=== PATIENT | female | born 1985 | race Caucasian/White ===

== ENCOUNTER 2016-06-01 20:52 | Observation (INO) | payer OTHER ==
[~2016-06-01] VITALS: Ht 165.1 cm; Wt 84.0 kg
[~2016-06-01 20:52] MED LIST: ACET325T51 PO; ALBU8.5H2 INHALATION; Dexamethasone 4 mg/mL Inj ONE; Glycopyrrolate 0.2 MG/ML 1mL Inj ONE; Ketamine 10 mg/mL 20 mL Inj ONE; Neostigmine 1 mg/mL 10 mL Inj ONE; OMEP20CA11 PO; Ondansetron 2 mg/mL 2 mL Inj ONE; Propofol 10,000 mCg/mL 20 mL Inj ONE; Rocuronium 10 mg/mL 5 mL Inj ONE; SUCR1ORA2 PO
[2016-06-01 20:56] VITALS: BP 137/95; PULSE 118; RESP 18; O2SAT 99
[2016-06-01] MEDS ORDERED: Ondansetron 2 mg/mL 2 mL Inj IVPUSH ONE (21:35)
[2016-06-01 21:44] LABS: BASOPHILS % (AUTO) 0.1 % (0-3); EOSINOPHILS % (AUTO) 0.3 % (0-5); MONOCYTES % (AUTO) 4.2 % (4-12); Mean Corpuscular Hemoglobin 28.3 pg (27.0-35.0); Mean Corpuscular Volume 84.4 fL (81-100); NEUTROPHILS % (AUTO) 82.4 % (40-74); Platelet Count 288 bil/L (150-400)
[2016-06-01 21:59] LABS: Magnesium 1.6 mg/dL (1.6-2.6)
[2016-06-01] MEDS: fentaNYL-PF 50 mCg/mL 2 mL Inj IVPUSH PRN ×3 (22:07→23:30)
[2016-06-01 22:21] LABS: APPEARANCE,URINE CLEAR (CLEAR,HAZY); COLOR,URINE YELLOW (YELLOW); OCCULT BLOOD,URINE TRACE (NEGATIVE); UROBILINOGEN,URINE NORMAL (NORMAL)
--- NOTE | 2016-06-01 22:25 | ED.REPORT ---
HPI-Abd Pain F Under 40 Date of Service Jun 01, 2016 ED Provider: Karthik Metzger MD The patient is a 31 year old female w/ a hx of cholelithiasis who presents to the ED due to RUQ abdominal and epigastric pain which radiates into the back for the past month increasing in severity today. C/o associated vomiting, nausea , diarrhea, loss of appetite, and slight fever. She is scheduled for cholecystitis surgery on the w/ Dr. Andrea Ramon and an upper and lower endoscopy on Saturday due to an extensive peptic ulcer family hx. The pt has been on protonics in recent weeks. She denies any fever, hematochezia or black and tarry stools. Nursing Notes Stated Complaint: GALLBLADDER ISSUES, PAIN, VOMITING, CAN'T EAT Chief Complaint: Female Abdominal Pain Nursing Notes Reviewed: Yes ([facility] not reconciled) Allergies: Coded Allergies: hydromorphone (Verified Allergy, Severe, Shortness of Breath, 06/01/16) oxycodone (Verified Adverse Reaction, Mild, ITCHING, 06/01/16) TOLERATES Scheduled Beclomethasone Dipropionate (Qvar) 8.7 Gm Aer.w.adap 1 PUFF INHALATION BID 40 MEQ Omeprazole (Omeprazole) 20 Mg Capsule.dr 20 MG PO ACHS Sucralfate Susp (Carafate Susp) 1 Gm/10 Ml Oral.susp 1 GM PO TID Scheduled PRN Acetaminophen (Acetaminophen) 325 Mg Tablet 500 MG PO Q4H PRN PRN For Pain Albuterol HFA (Proair HFA) 8.5 Gm Hfa.aer.ad 2 PUFFS INHALATION Q4H PRN PRN For Shortness of Breath General Time Seen by MD: 21:34 Chief Complaint Abdominal pain Hx Obtained From: Patient Arrived By: Walk-in Sudden in Onset?: Yes Onset Occurred: Yesterday Symptom Duration: Since onset Location: : RUQ Quality: Painful Radiation: : Back Severity: Current: Mild Recent Healthcare: Recent doctor visit, Recent testing Similar Sx Previous: Yes Past Medical History Past Medical History Notes: Ultrasound in recent days demonstrate cholelithiasis HIDA scan in recent days suggests cholecystitis Past Surgical History denies Smoking History Unknown if Ever Smoker Social History Other Social History: Good social support Ambulatory Status Independent Review of Systems Constitutional: Reports: Fever GI: Reports: Abdominal pain, Diarrhea, Vomiting, Denies: Bloody/tarry stool, Hematochezia Complete sys rev & neg: except as marked. Physical Exam Initial Vital Signs Vital Signs (First) Date Time Temp Pulse Resp B/P Pulse Ox O2 Delivery O2 Flow Rate FiO2 06/01/16 20:56 37.6 118 18 137/95 99 Room Air Initial VS: Reviewed Head / Eyes: Atraumatic, Normocephalic, PERRL ENT: Mucous membranes moist Extremities: Vascular intact, No swelling Skin: Warm, Dry General/Constitutional: Awake, Alert, Cooperative Respiratory / Chest: Atraumatic, Breath sounds NL, Breath sounds = bilat Heart Rate / Rhythm: Positive: Tachycardia Abdomen: No guarding, No rebound Tenderness/Guarding/Rebound: Positive: Tender RUQ... Back: Atraumatic, Inspection NL, Full range of motion Interpretation & Diagnostics Interpretation & Diagnostics: The imaging studies in recent days-abdominal ultrasound 04/03/16, HIDA scan 05/14/16 Lab Results Interpretation Result Diagram: 06/01/16212006/01/162120 Test 06/01/16 21:21 06/01/16 21:36 White Blood Count 9.5th/mm3 (3.8-10.1) Red Blood Count 5.51mil/mm3 (3.90-5.20) Hemoglobin 15.6g/dL (12.0-15.6) Hematocrit 46.5% (35.0-46.0) Mean Corpuscular Volume 84.4fL (81-100) Mean Corpuscular Hemoglobin 28.3pg (27.0-35.0) Mean Corpuscular Hemoglobin Concent 33.5% (32.0-37.0) Red Cell Distribution Width 12.9% (12.3-15.4) Platelet Count 288bil/L (150-400) Neutrophils (%) (Auto) 82.4% (40-74) Lymphocytes (%) (Auto) 12.9% (14-46) Monocytes (%) (Auto) 4.2% (4-12) Eosinophils (%) (Auto) 0.3% (0-5) Basophils (%) (Auto) 0.1% (0-3) Hold Purple Top Tube Received (Received) Hold Blue Top Tube Received (Received) Sodium Level 134mEq/L (134-144) Potassium Level 4.0mEq/L (3.5-5.2) Chloride Level 97mEq/L (97-108) Carbon Dioxide Level 21mmol/L (18-29) Blood Urea Nitrogen 9mg/dL (6-20) Creatinine 0.62mg/dL (0.57-1.00) Estimat Glomerular Filtration Rate 162mL/min (>59) Glucose Level 104mg/dL (60-99) Calcium Level 9.6mg/dL (8.5-10.1) Magnesium Level 1.6mg/dL (1.6-2.6) Total Bilirubin 0.9mg/dL (0.0-1.2) Aspartate Amino Transf (AST/SGOT) 17U/L (0-50) Alanine Aminotransferase (ALT/SGPT) 8U/L (0-32) Alkaline Phosphatase 80U/L (25-150) Total Protein 7.9g/dL (6.4-8.4) Albumin 4.7g/dL (3.4-5.0) Lipase 19U/L (13-60) Hold Red Top Tube Received (Received) Hold [place] Top Tube Received (Received) Hold [place] Top Tube Received (Received) Urine Color Yellow (YELLOW) Urine Appearance Clear (CLEAR,HAZY) Urine pH 6.0 (5.0-8.0) Urine Specific [place] 1.005 (1.003-1.035) Urine Protein Negativemg/dL (NEG,TRACE) Urine Glucose (UA) Negativemg/dL (NEGATIVE) Urine Ketones Negativemg/dL (NEGATIVE) Urine Occult Blood Trace (NEGATIVE) Urine Nitrite Negative (NEGATIVE) Urine Bilirubin Negative (NEGATIVE) Urine Urobilinogen Normalmg/dL (NORMAL) Urine Leukocyte Esterase Trace (NEGATIVE) Urine RBC 0-2/hpf (0-2) Urine WBC 6-10/hpf (0-5) Urine Epithelial Cells Few/hpf (NONE-MOD) Urine Crystals None seen (NONE SEEN) Urine Bacteria None/hpf (NONE-FEW) Urine Hyaline Casts None/lpf (NONE) Urine Granular Casts None seen (NONE SEEN) Urine Waxy Casts None seen (NONE SEEN) Urine Red Blood Cell Casts None seen (NONE SEEN) Urine White Blood Cell Casts None seen (NONE SEEN) Urine Mucus None seen (None Seen) Urine Trichomonas None seen (NONE SEEN) Urine Yeast None (NONE SEEN) Urine Culture Reflexed Indicated Lab Results Interpretation: CBC normal CMP normal Lipase normal negative UA 6-10 white cells Re-Eval/Medical Decision Med Decision/Clinical Course This is a 31-year-old female presents complaining of a one-day history of dramatic worsening of right upper quadrant pain reading the back. The patient' s been dealing with some epigastric discomfort over the past couple months, worse with eating-she has been seen by GI and a workup was pursued that included an ultrasound revealed gallstones, and a HIDA scan the end of April which is suggestive chronic cholecystitis, so she is seen a surgeon and is scheduled for laparoscopic cholecystectomy next week. However, there is also no simultaneous concerned about the possibility of peptic ulcer disease, apparently is extensive family history-and the request from GI was performed endoscopy prior to surgery, so that is scheduled Saturday. Over today there was a significant worsening of her symptoms, she reports she has had nearly daily discomfort to some degree, but that today her pain got dramatically worse, this is more the right upper quadrant, radiating to the back, again worse with food, and associated with nausea and was entirely uncontrolled. She [place] out on [address], initially got her attention so she came to the ED. She has not had a fever however. I am she is mildly uncomfortable, mild tenderness without sonia Chau's or guarding on ultrasound, but the location of her discomfort is now more in the right upper quadrant region of the back and much more suggestive clinically of gallbladder-related pathology, peptic ulcer disease which is in the differential as well. She was slightly tachycardic initially, but not febrile-a repeat vitals are normal. Blood work is also normal no leukocytosis, normal liver function tests and lipase. is negative. Patient received titrated fentanyl fluids with some improvement. Repeat ultrasound was obtained after discussion with GI-as clinically the patient most likely source is a cholecystectomy, but there is a preference from the GI service to if possible perform endoscopy prior to surgery, so they would like the ultrasound to see if there are findings to indicate a need for expedited surgery. The ultrasound revealed the cholecystitis, but no interval change or findings of sonia ultrasound signs of acute cholecystitis. Because discussed the case with surgery who will consult, given she does not have a fever, a white count, or other markers of infection-none pursuing antibiotics at this stage. GI will see in the morning as well, and the patient is being admitted to the hospitalist service. The patient is admitted in improved condition. Source of Hx: Old records Re-Evaluation/Progress : Time of Eval: 11:41 Re-Evaluation/Progress Note: Pt rechecked. Pain is slightly improved after medication. Informed pt of discussion with surgeons, need for admission, and plan of treatment. F/U and RTER warnings given. Pt understands and agrees with plan. Consultation #1: Referral / Consult Name: Prema Rodríguez MD Consulted With: Surgeon Call Returned at: 20:34 [place] Lifeguard: Agrees with eval, Agrees with plan Note: Case discussed. Consultation #2: Referral / Consult Name: Wade Gordon MD Call Returned at: 22:42 [place] Lifeguard: Agrees with eval, Agrees with plan Note: Case discussed with GI. Consultation #3: Referral / Consult Name: Jeremiah Garcia MD Consulted With: Hospitalist Call Returned at: 23:10 Beach Lifeguard: Agrees with eval, Agrees with plan Note: Case discussed. Counseled Regarding: Diagnosis, Lab results, Need for admission Discharge & Departure Primary Impression: Right upper quadrant pain Additional Impressions: Cholelithiasis Cholelithiasis location: gallbladder Cholecystitis presence: with cholecystitis Cholecystitis acuity: chronic Biliary obstruction: without biliary obstruction Qualified Code: K80.10 - Calculus of gallbladder with chronic cholecystitis without obstruction Nausea & vomiting Vomiting type: unspecified Vomiting Intractability: unspecified Qualified Code: R11.2 - Nausea with vomiting, unspecified Disposition: ADMITTED TO HOSPITAL Discharge Condition All VS Reviewed: Yes Condition: Stable Referrals: Hermelindo Troy MD (PCP) Alesha Attestation Portion of this note were transcribed by Lauren Edmonds. I, Dr. Metzger, personally performed the history, physical exam, and medical decision-making: I reviewed and confirmed the accuracy for the information in the transcribed note. Signed by: alesha Starks, 06/01/16 2300 copies to: Hermelindo Troy MD, Matthew F MD Jun 01, 2016 22:25 Lauren Edomnds Jun 01, 2016 22:32
[2016-06-01] MEDS ORDERED: Alum-Mag Hydrox-Simeth 30 mL Suspension PO PRN (23:25)
[2016-06-01] MEDS ORDERED: Polyethylene Glycol (PEG) 17 Gm Powder PO PRN (23:25)
[2016-06-01] MEDS ORDERED: BECL8.7A6 INHALATION (23:48)
[2016-06-02] VITALS (18 sets, daily range): BP systolic 86–133; BP diastolic 51–87; PULSE 57–94; RESP 12–24; O2SAT 94–100
[2016-06-02] MEDS: fentaNYL-PF 50 mCg/mL 2 mL Inj IVPUSH PRN ×8 (00:06→20:35)
[2016-06-02] MEDS: 0.9% Sodium Chloride 1,000 ML IV SCH ×4 (01:57→14:46)
[2016-06-02] MEDS: Ondansetron 2 mg/mL 2 mL Inj IVPUSH PRN ×3 (02:05→16:17)
--- NOTE | 2016-06-02 02:33 | PCM.HPMED ---
Subjective Date of Service Jun 01, 2016 Primary Provider: Admitting Physician: Jeremiah Garcia MD Primary Care Physician: Hermelindo Troy MD Attending Physician: Jeremiah Garcia MD Admit Status: From the Emergency Department Chief Complaint: Abdominal pain, nausea and vomiting. History of Present Illness: 31 y/o female with a history of cholelithiasis, reflux and asthma who presented to the ED complaining of worsening abdominal pain for the past month. She states that her pain has increased in severity in the last day or so and localizes to the RUQ with radiation to her back. Associated symptoms include nausea, vomiting, diarrhea, fever and decreased appetite. She describes the pain as severe and states that every time she tried to eat anything today the pain got worse and nothing seemed to make it go away. She states that she met with Dr. Ramon recently and was planning to have her gallbladder removed later this month. Per chart review, due to the patient's extensive family history of peptic ulcer disease and failure to improve on PPI therapy endoscopy was also planned for early next week. She states that her symptoms just kept getting worse so she decided to come in. She denies hematochezia or black, tarry stools , hematemesis, or urinary symptoms. She had an abdominal ultrasound in March that demonstrated cholelithiasis and a HIDA scan just a few weeks ago with findings suggestive for cholecystitis. In the ED, vitals 37.6, BP 137/95, pulse 118, RR 18, SpO2 99% on room air; Labs : lipase wnl, total bili 0.9, AST 17, ALT 8, alk phos 80, wbc 9.5, H/H 15.6/46.5 , plts 288, sodium 134, potassium 4.0, chloride 97, bicarb 21, BUN 9, creatinine 0.62, glucose 104. Urine test negative. Urinalysis with trace leukocyte esterase, negative nitrite, 6-10 wbc,and trace occult blood. Gastroenterology and General Surgery were consulted from the ED and both plan to see the patient in the morning. Review of Systems: A comprehensive review of systems was conducted with the patient and found to be negative except as above in the History of Present Illness. Allergies Coded Allergies: hydromorphone (Verified Allergy, Severe, Shortness of Breath, 06/01/16) oxycodone (Verified Adverse Reaction, Mild, ITCHING, 06/01/16) TOLERATES Home Medications Albuterol HFA 2 puffs inh q4h Omeprazole 20mg qid Sucralfate susp 1gm tid Acetaminophen 500mg q4h prn for pain PMH Cholelithiasis Asthma Carpal tunnel Reflux Surgical History Carpal tunnel release bilaterally Family History Father with colon cancer brother and sister with colon cancer Social History Hx Alcohol Use: No Hx Substance Use: No Smoking Status: Unknown if Ever Smoker Living Arrangement: with Family Exam Vital Signs Vital Sign - Last Date Time Temp Pulse Resp B/P Pulse Ox O2 Delivery O2 Flow Rate FiO2 06/01/16 20:56 37.6 118 18 137/95 99 Room Air Exam General: No acute distress, well-developed, well-nourished, appropriately interactive HEENT: Normocephalic, atraumatic Pupils equal, round, and reactive to light and accommodation, no scleral icterus, oral mucosa moist . Neck: Supple with full range of motion. No jugular venous distension. No bruits. No lymphadenopathy or thyromegaly. Cardiovascular: Regular rate and rhythm with no murmurs, rubs, or gallops appreciated Pulmonary: Clear to auscultation bilaterally with no crackles, wheezes, or rhonchi. Normal respiratory effort. Abdomen: Bowel tones present. Soft, nondistended, tenderness to palpation RUQ and epigastrium. No hepatosplenomegaly or masses appreciated. Extremities: No clubbing, cyanosis, edema, or lymphadenopathy appreciated. Skin: Normal temperature, turgor, and texture; no rash, ulcers, or subcutaneous nodules appreciated. Neurological: Cranial nerves grossly intact. Normal muscle strength, tone, and bulk. Psychiatric: Normal mood and affect. Alert and oriented to person, place, and time. Lab and Diagnostics Labs Laboratory Tests Test 06/01/16 21:21 06/01/16 21:36 White Blood Count 9.5th/mm3 (3.8-10.1) Red Blood Count 5.51mil/mm3 (3.90-5.20) Hemoglobin 15.6g/dL (12.0-15.6) Hematocrit 46.5% (35.0-46.0) Mean Corpuscular Volume 84.4fL (81-100) Mean Corpuscular Hemoglobin 28.3pg (27.0-35.0) Mean Corpuscular Hemoglobin Concent 33.5% (32.0-37.0) Red Cell Distribution Width 12.9% (12.3-15.4) Platelet Count 288bil/L (150-400) Neutrophils (%) (Auto) 82.4% (40-74) Lymphocytes (%) (Auto) 12.9% (14-46) Monocytes (%) (Auto) 4.2% (4-12) Eosinophils (%) (Auto) 0.3% (0-5) Basophils (%) (Auto) 0.1% (0-3) Hold Purple Top Tube Received (Received) Hold Blue Top Tube Received (Received) Sodium Level 134mEq/L (134-144) Potassium Level 4.0mEq/L (3.5-5.2) Chloride Level 97mEq/L (97-108) Carbon Dioxide Level 21mmol/L (18-29) Blood Urea Nitrogen 9mg/dL (6-20) Creatinine 0.62mg/dL (0.57-1.00) Estimat Glomerular Filtration Rate 162mL/min (>59) Glucose Level 104mg/dL (60-99) Calcium Level 9.6mg/dL (8.5-10.1) Magnesium Level 1.6mg/dL (1.6-2.6) Total Bilirubin 0.9mg/dL (0.0-1.2) Aspartate Amino Transf (AST/SGOT) 17U/L (0-50) Alanine Aminotransferase (ALT/SGPT) 8U/L (0-32) Alkaline Phosphatase 80U/L (25-150) Total Protein 7.9g/dL (6.4-8.4) Albumin 4.7g/dL (3.4-5.0) Lipase 19U/L (13-60) Hold Red Top Tube Received (Received) Hold [place] Top Tube Received (Received) Hold [place] Top Tube Received (Received) Urine Color Yellow (YELLOW) Urine Appearance Clear (CLEAR,HAZY) Urine pH 6.0 (5.0-8.0) Urine Specific [place] 1.005 (1.003-1.035) Urine Protein Negativemg/dL (NEG,TRACE) Urine Glucose (UA) Negativemg/dL (NEGATIVE) Urine Ketones Negativemg/dL (NEGATIVE) Urine Occult Blood Trace (NEGATIVE) Urine Nitrite Negative (NEGATIVE) Urine Bilirubin Negative (NEGATIVE) Urine Urobilinogen Normalmg/dL (NORMAL) Urine Leukocyte Esterase Trace (NEGATIVE) Urine RBC 0-2/hpf (0-2) Urine WBC 6-10/hpf (0-5) Urine Epithelial Cells Few/hpf (NONE-MOD) Urine Crystals None seen (NONE SEEN) Urine Bacteria None/hpf (NONE-FEW) Urine Hyaline Casts None/lpf (NONE) Urine Granular Casts None seen (NONE SEEN) Urine Waxy Casts None seen (NONE SEEN) Urine Red Blood Cell Casts None seen (NONE SEEN) Urine White Blood Cell Casts None seen (NONE SEEN) Urine Mucus None seen (None Seen) Urine Trichomonas None seen (NONE SEEN) Urine Yeast None (NONE SEEN) Urine Culture Reflexed Indicated Microbiology 06/01/16 Urine Culture, Received Pending Result Diagram: 06/01/16212006/01/162120 Additional Diagnostics: US Gallbladder (06/01/16) in the ED: IMPRESSION: Cholelithiasis with mild biliary ductal dilatation. Night read: Danilo Burt MD 06/02/2016 12:40 NM HIDA SCAN WITH CCK (05/14/16) IMPRESSION: Abnormal gallbladder ejection fraction this can be associated with chronic cholecystitis or sphincter of Oddi dysfunction. Dictated by: Liv Gregg MD, PhD on 05/14/2016 at 16:35 Approved by: Liv Gregg MD, PhD on 05/14/2016 at 16:36 US ABDOMEN (04/03/2016) IMPRESSION: 1. Increased hepatic echogenicity noted likely related to fatty infiltration of the liver but other sources of hepatocellular disease cannot be excluded. Recommend clinical correlation. 2. Cholelithiasis. Dictated by: Abhishek Troy RRA Interpreted: Nancy Abarca MD on 04/03/2016 at 11: 24 Transcribed by: LUI on 04/03/2016 at 11:29 Approved by: Nancy Abarca M.D. on 04/03/2016 at 15:18 Assessment & Plan 31 y/o F with a hx of cholelithiasis with biliary colic and outpatient evaluation by Dr. Ramon with laparoscopic cholecystectomy scheduled for 06/07/16 who presented to the ED complaining of severe RUQ abdominal pain, nausea and vomiting. Admitted for further evaluation and management of chronic cholecystitis. # Chronic cholecystitis, poa. Active -HIDA scan on 05/14/16 with findings consistent with chronic cholecystitis or sphincter of Oddi dysfunction. Abd US in Mar 2016 evidence of fatty infiltration of the liver, cholelithiasis. -US gallbladder in the ED- showed cholelithiasis w/mild biliary ductal dilatation. -total bili 0.9, AST 17, ALT 8, alk phos 80, lipase wnl -General surgery consulted from the ED, will plan to see in the morning. Per surgery, no antibiotics necessary at this time. -Gastroenterology also consulted, plan for endoscopy prior to surgery. Plan to see in the morning. -supportive care: IVFs, pain meds, anti-emetics prn. -keep NPO # Hx of gastroesophageal reflux, poa. Ongoing -strong family hx of peptic ulcer disease. Endoscopy per GI originally scheduled for Saturday. -refractory to PPI therapy -General surgery and GI consulted, as above -continue Protonix, antiemetics as needed -keep NPO # Hx of Asthma (chronic), poa. Stable -continue home medications PRN: Acetaminophen-fever/headache/mild/moderate pain Antiemetics, as needed Bowel regimen, as needed. Disposition: Patient admitted under inpatient status with expected length of stay < 2 midnights for severity of present symptoms and complexities of treatment plan. Pain Evaluation: Adequate Pain Control VTE Prophylaxis Indicated: Meets Criteria for Anticoag Therapy VTE Prophylaxis: Sub-Q Heparin (Unfractionated) Resuscitation Status: CPR: Attempt Resuscitation Attending Statement The patient was seen and examined together with Dr. Deluna on 06/01 and I agree with the history, exam and plan as outlined in the note above. Rosemarie Deluna DO Jun 01, 2016 23:27 Jeremiah Garcia MD Jun 02, 2016 03:36
--- NOTE | 2016-06-02 03:23 | NUR ---
admit pt arrived to [facility] room 1016 at 0015. she is alert and oriented. she is able to ambulate in the room independently w/o any signs of weakness. pt was given was given fentanyl prior to being brought to the floor and her pain level was at a tolerable level. pt is NPO for possible surgery tomorrow. IV fluids have been started. pt has had mild nausea that is controlled with zofran, no vomiting. VSS and afebrile. admit and med rec complete. pt oriented to room, call light and bed controls. care continues.
[2016-06-02 06:19] LABS: BASOPHILS % (AUTO) 0.1 % (0-3); EOSINOPHILS % (AUTO) 0.6 % (0-5); MONOCYTES % (AUTO) 6.9 % (4-12); Mean Corpuscular Hemoglobin 28.5 pg (27.0-35.0); Mean Corpuscular Volume 85.3 fL (81-100); NEUTROPHILS % (AUTO) 60.6 % (40-74); Platelet Count 264 bil/L (150-400)
--- NOTE | 2016-06-02 06:43 | DRSVH ---
PROCEDURE: US ABDOMEN, LIMITED ([id number]) INDICATIONS: ABd pain TECHNIQUE: Real-time focused scanning was performed of the abdomen, with image documentation. COMPARISON: None. FINDINGS: The gallbladder wall measures less than 3 mm in diameter. Subcentimeter shadowing stones ar e layered in the gallbladder fundus. No pericholecystic fluid. The common bile duct measures 7 mm in diameter. IMPRESSION: 1. Cholelithiasis. No findings to suggest choledocholithiasis. 2. The common bile duct is the upper limits of normal for size. Dictated by: Alem Abreu M.D. on 06/02/2016 at 6:39 Approved by: Alem Abreu M.D. on 06/02/2016 at 6:41
[2016-06-02] MEDS: Fluticasone 100 mCg Inhaler INHALATION SCH ×2 (08:11→20:30)
--- NOTE | 2016-06-02 09:45 | NUR ---
Pt off Unit Pt off unit to Endo.
--- NOTE | 2016-06-02 11:18 | CONS ---
[address] [address] CONSULTATION REPORT PATIENT: DOUGIE CORREA : 1985 MR#: [id number] ADMIT: 06/01/2016 JOB ID: [id number] DATE OF SERVICE: 06/02/2016 CHIEF COMPLAINT: Right upper quadrant pain. HISTORY OF PRESENT ILLNESS: The patient is a 31-year-old female from [place] who has known cholelithiasis. She has been seen by Dr. Andrea Ramon in the office on May 25, and she was scheduled for lap amalia next week. The patient was also scheduled for a planned upper and lower endoscopy this coming Saturday. However, the patient developed intractable nausea and vomiting, with epigastric and right upper quadrant pain, which prompted a visit to the emergency department last night. The patient denies any fever but she was not able to keep anything down. The patient had a repeat ultrasound done last night which showed cholelithiasis. The patient has had a prior HIDA scan that showed a gallbladder ejection fraction of 9%. PAST MEDICAL HISTORY: Asthma, bilateral carpal tunnel surgery and acid reflux. MEDICATIONS AT HOME: Include albuterol, omeprazole, Sucralfate. ALLERGY: 1. HYDROMORPHONE. 2. OXYCODONE. FAMILY HISTORY: Positive for peptic ulcer disease, colon cancer. SOCIAL HISTORY: She is an financial sales assistant hebrew teacher. REVIEW OF SYSTEMS: Positive for the epigastric pain and right upper quadrant pain, nausea and vomiting. PHYSICAL EXAMINATION: The patient is currently in a hospital bed in no acute distress. Temperature 36.6, blood pressure 104/69, pulse is 57, respirations 16. Head is normocephalic, atraumatic. There is no scleral icterus. Neck is supple. Heart is regular rate. Lungs are clear. Abdomen is nondistended. It is soft. The patient has some discomfort with palpation of the epigastric and right subcostal region but there is no rebound. There are no palpable masses. Extremities show no clubbing and no cyanosis. Neurologically, the patient is awake and alert, and follows commands. LABORATORY EXAMINATION: Showed a white blood count of 6.8, hematocrit 40.1, platelet count 264. Total bilirubin 0.6. Lipase was 19. Her urine test was negative. ASSESSMENT AND PLAN: This is a 31-year-old female with symptomatic cholelithiasis. I believe a gastroenterology consultation has been placed by the emergency department. Our plan would be to take her to the operating room for a laparoscopic cholecystectomy today. The patient understands and agrees with the plan.
--- NOTE | 2016-06-02 11:44 | PCM.ENDEGD ---
EGD Date of Service: Jun 02, 2016 Physician Jeremiah Garcia MD Pre Procedure Diagnosis: Abdominal pain rule out peptic ulcer disease or other causes of abdominal pain Post Procedure Dx & Findings: Normal upper GI Procedure Esophagogastroduodenoscopy PROCEDURE IN DETAIL: After proper sedation, Olympus video endoscope was inserted into patient's mouth and esophagus was successfully intubated. Scope introduced esophagus. Esophagus showed normal shiny whitish mucosa consistent with squamous cell component. Z line was intact at 35 cm from the incisors. The scope further advanced to the stomach. Stomach showed normal shiny mucosa with normal appearing rugae folds without any ulcer mass erosion. Cardia fundus body antrum pylorus were all visualized. Retroflexion was done. Stomach was easily inflated and deflatable using air. Scope further events to the distal duodenum. Duodenum revealed normal villous structures with normal appearing folds without any mass ulcer erosion. To rule out celiac disease biopsies 5 obtained in the duodenum. Impression Normal upper GI Random biopsy obtained for celiac disease. Recommendation Await Biopsies Presedation Assessment Risks and Benefits Informed consent was obtained from the patient after all risks and benefits including but not limited to drug reaction, infection, pain, bleeding, perforation, as well as alternatives were discussed. Patient monitoring Continuous pulse oximetry, cardiac monitoring, blood pressure monitoring, IV access, and oxygen at 2L per nasal cannula. Periprocedural Fentanyl: Fentanyl 150mcg Incrementally Midazolam: Midazolam 6mg Incrementally Complications There were no periprocedural complications identified. Post Procedure Plan Post Procedure Recommendations 1. Restrict activities today. 2. Resume normal activities in the morning. 3. Resume medications. 4. GERD behavioral modification: - Avoid fatty, acidic, spicy, large meals - Do not lie down after meals - Do not eat or drink anything for at least 2 1/2 hours before going to bed at night - Discontinue tobacco and alcohol - Decrease or avoid caffeine - Avoid chocolate and mints - Decrease weight - Avoid aspirin and non steroidal anti-inflammatory agents (NSAID) such as Aleve, Advil, Mobic, Naproxen, Ibuprofen, etc 5. Add proton pump inhibitor. Take 30 minutes before 1st meal of the day. 6. Patient informed of normal post procedure side effects as bloating, drowsiness, blood streaking in the stool 7. If gastric biopsy reveal H.pylori, continue with appropriate treatment 8. If small bowel biopsy reveals celiac, continue with appropriate treatment 9. Please don't hesitate to call me with any questions Wade Gordon MD Jun 02, 2016 11:44
[2016-06-02] MEDS ORDERED: Ondansetron 2 mg/mL 2 mL Inj IVPUSH PRN (13:20)
--- NOTE | 2016-06-02 13:57 | DRSVH ---
PROCEDURE: X-RAY OPERATIVE CHOLANGIOGRAM ([id number]) INDICATIONS: JORGE COMPARISON: None. FINDINGS: Biliary ducts: The surgeon injected contrast into the biliary ducts after cannulation of the cystic duct stump. The intrahepatic biliary tree was not visualized. Visualized extrahepatic bile ducts are normal in caliber, without strictures. No intraluminal filling defects to suggest retained ductal s tones or sludge. No evidence for iatrogenic ductal injury. Duodenum: Contrast flows promptly through the sphincter of Oddi into the duodenum, which appears nor mal in caliber. IMPRESSION: 1. Normal appearance of the hepatic duct and common bile duct. No intraluminal filling defects. The i ntrahepatic biliary tree was not imaged. Dictated by: Alem Abreu M.D. on 06/02/2016 at 13:55 Approved by: Alem Abreu M.D. on 06/02/2016 at 13:56
[2016-06-02] MEDS ORDERED: Albuterol-Ipratropium 3 mL Inhalation Solution ONE (14:18)
--- NOTE | 2016-06-02 14:30 | NUR ---
Post op Pt arrived to [facility] room 1016 at 1430. Pt A&Ox3. MEJIA. Able to transfer from stretcher to bed min assistance. Pain /10. Medication given. Lap sites C/D/I. Denies nausea. Tolerating ice chips. Will continue to monitor.
--- NOTE | 2016-06-02 15:53 | NUR ---
Social Work Note: Screen Note Data& Assessment: EMR reviewed. Patient is a 31 year old female admitted on 06/01/16 for right upper quadrant abdominal pain per H&P. Pt has [employer] for insurance coverage and sees Hermelindo Troy MD for primary care. Pt lives in [place] with family and is independent at baseline. Pt is currently independent in her room. No discharge needs identified at this time. SW to continue to follow if any needs arise. Plan: Anticipated discharge home via POV when medically ready. No discharge needs identified at this time. SW to continue to follow if any needs arise. Mera Huerta, DEUCE, ACM
[2016-06-02] MEDS ORDERED: CeFAZolin Inj 2 GM in IV Premix 1 EACH IV SCH (16:30)
[2016-06-02] MEDS: HYDROcodone-APAP 5-325 mg Tablet PO PRN ×2 (17:18→19:56)
[2016-06-02] MEDS: CeFAZolin Inj 2 GM in IV Premix 1 EACH IV SCH (17:19)
[2016-06-02] MEDS ORDERED: fentaNYL-PF 50 mCg/mL 2 mL Inj IVPUSH ONE (18:50)
[2016-06-02] MEDS: Albuterol 2.5 mg/3 mL Inhalation Solution NEB PRN (21:04)
[2016-06-03] MEDS: fentaNYL-PF 50 mCg/mL 2 mL Inj IVPUSH PRN ×6 (00:07→12:25)
[2016-06-03] MEDS: HYDROcodone-APAP 5-325 mg Tablet PO PRN ×3 (00:09→09:11)
[2016-06-03] MEDS: 0.9% Sodium Chloride 1,000 ML IV SCH (01:21)
[2016-06-03] MEDS: CeFAZolin Inj 2 GM in IV Premix 1 EACH IV SCH (01:35)
[2016-06-03] MEDS: Ondansetron 2 mg/mL 2 mL Inj IVPUSH PRN ×3 (02:12→13:18)
--- NOTE | 2016-06-03 02:40 | CONS ---
[address] [address] CONSULTATION REPORT PATIENT: DOUGIE CORREA : 1985 MR#: [id number] ADMIT: 06/01/2016 JOB ID: [id number] DATE OF SERVICE: 06/02/2016 HISTORY OF PRESENT ILLNESS: I had the pleasure of seeing the patient at [facility] for abdominal pain, nausea, vomiting. This is a 31-year-old lady who is well known to me. I saw her in the clinic for chronic abdominal pain. She has a history of cholelithiasis, reflux and asthma. When I saw her, she had a HIDA scan with reproduction of abdominal pain with CCK with EF of 9%. She was scheduled for an upper endoscopy and later a colonoscopy due to her family history of colon cancer. She was supposed to get the EGD and colonoscopy next week and, a few days afterward, she was supposed to get a cholecystectomy by Dr. Ramon. However, yesterday, she started having worsening abdominal pain, localized in the right upper quadrant area, radiating to the back. She said it was severe, 10/10, associated with nausea, vomiting, diarrhea. She thought she had fevers and definitely decreased appetite. When she tried to eat anything, it definitely got worse. This pain, which was intermittent, has become constant. Because of this, my office got a phone call and I have asked her to come in to the emergency department and, in the emergency department, she was evaluated and she was admitted for pain control and abdominal pain, nausea, vomiting. When I saw her, her pain was better but still quite significant. She said it was about 5-6/10. Pretty much the same characteristics as I described above. REVIEW OF SYSTEMS: No dizziness, lightheadedness, chest pain, shortness of breath. No blood in the stools, black stools. No skin rash, joint pain. ALLERGIES: HYDROMORPHONE, OXYCONTIN. MEDICATIONS AT HOME: Include albuterol, omeprazole, sucralfate, Tylenol. MEDICATIONS IN THE HOSPITAL: Include fluticasone, Zofran, fentanyl, Tylenol, albuterol, polyethylene glycol, senna, MOM. PAST MEDICAL HISTORY: Reflux, asthma, cholelithiasis. PAST SURGICAL HISTORY: Carpal tunnel. FAMILY HISTORY: Father with colon cancer, and brother and sister with colon cancer. SOCIAL HISTORY: Denies alcohol, tobacco. PHYSICAL EXAMINATION: Temp 36.6, pulse 57, respirations 16, blood pressure 104/69. Head and neck: No icterus. Lungs: Clear. Cardiovascular: Regular rate and rhythm. Normal S1, S2. Abdomen: Soft. Tenderness in the epigastric and right upper quadrant area, moderate. No guarding, rebound or firmness. Nondistended, with normoactive bowel sounds. Extremities: No pitting edema of the ankles. Skin shows no jaundice. Radial pulses bilaterally strong and intact. LABORATORY DATA: Hemoglobin 13.4, white count 6.8, platelets 264,000. Chemistry: LFTs are normal. BUN 3, creatinine 0.7. Ultrasound which was done showed cholelithiasis, CBD 7 mm. IMPRESSION: This is a 31-year-old lady with acute worsening of her abdominal pain. Etiology most likely dysfunctional gallbladder. However, other differential includes peptic ulcer disease celiac gastritis reflux with the gallbladder dysfunction. She has improvement in her pain. However, she is on pain medications. She is scheduled to be taken to the operating room by the surgical services. After speaking to Dr. Long, we decided we will proceed with an esophagogastroduodenoscopy just to make sure there is not any stomach pathology. She would need a colonoscopy at one point, but this could be delayed. RECOMMENDATION: EGD. Afterwards, proceed with cholecystectomy as directed by Dr. Long. Finally, her LFTs are normal. Common bile duct is a little generous, but doubt that this is cholelithiasis. Would recommend trending the LFTs after the surgery if cholangiogram is not done, but I will defer the cholangiogram issue to Dr. Long. [facility] HOSPITALJean-Pierre
[2016-06-03 05:32] VITALS: PULSE 71; RESP 16; O2SAT 98
[2016-06-03] MEDS: Albuterol 2.5 mg/3 mL Inhalation Solution NEB PRN (05:32)
[2016-06-03 06:21] LABS: BASOPHILS % (AUTO) 0.1 % (0-3); EOSINOPHILS % (AUTO) 0.9 % (0-5); MONOCYTES % (AUTO) 10.2 % (4-12); Mean Corpuscular Hemoglobin 28.3 pg (27.0-35.0); Mean Corpuscular Volume 85.3 fL (81-100); NEUTROPHILS % (AUTO) 48.7 % (40-74); Platelet Count 247 bil/L (150-400)
[2016-06-03 07:11] VITALS: BP 109/79; PULSE 88; RESP 20; O2SAT 97
--- NOTE | 2016-06-03 07:17 | NUR ---
pain pt has complained of abdominal pain 9/10 this shift. she has been given 2 Norcos for pain control as well as IV fentanyl. she stated that the fentanyl only helped for a short while. she is not passing gas yet and has complained of gas pain up in to her shoulders. she walked around the unit once at bedtime and once this AM. This morning she reported that her pain was 6/10 and feeling better then yesterday. she has been encouraged to continue ambulating. care continues.
[2016-06-03 07:35] VITALS: BP 104/68; PULSE 91; RESP 17; O2SAT 98
--- NOTE | 2016-06-03 07:37 | OP ---
[address] [address] OPERATIVE REPORT PATIENT: DOUGIE CORREA : 1985 MR#: [id number] ADMIT: 06/01/2016 JOB ID: [id number] DATE OF SURGERY: 06/02/2016 PREOPERATIVE DIAGNOSIS(ES): Symptomatic cholelithiasis. POSTOPERATIVE DIAGNOSIS(ES): Symptomatic cholelithiasis, possible cholecystitis. SURGEON: Saul Long MD PUTTYING AND CALKING SUPERVISOR: Cortes Pereira and Dr. Gardner resident-1. ANESTHESIA: General. OPERATIVE PROCEDURE: Laparoscopic cholecystectomy with intraoperative cholangiogram. INDICATION FOR PROCEDURE: The patient is a 31-year-old female with epigastric and right upper quadrant pain with nausea and vomiting who has had ultrasound showing cholelithiasis and 90% ejection fraction on a HIDA scan. The patient just had an EGD which was fairly normal by GI. OPERATIVE FINDING: Distended gallbladder, successful laparoscopic cholecystectomy. The intraoperative cholangiogram was normal. PROCEDURE COURSE: The patient was brought to the operating table and was provided with general anesthesia. The patient was given IV antibiotics and SCDs. A time-out was performed. The patient's abdomen was then prepped and draped in the usual sterile fashion. Next, local anesthetic was injected into the infraumbilical location and a 5 mm stab incision was made. Attempts to establish pneumoperitoneum at this site was not successful. Decision was made to change to a left upper quadrant site. Insufflation via the left upper quadrant site was successful. A 5 mm trocar was then placed and the laparoscope was introduced. Looking back at the umbilicus a 5 mm port was then placed directly under visualization. There is no signs of injury to the intraperitoneal structures by the Veress needle. Next, a 12 mm trocar was then placed in the subxiphoid location and 2 additional 5 mm trocars were then placed in the right lateral abdomen. The gallbladder was quite distended. It was able to be grasped cephalad and dissection of the infundibulum and the Calot triangle was then carried out. The cystic duct was able to be circumferentially isolated and was visualized to enter the gallbladder directly. The cystic artery was visualized to its right. A clip was then placed on the gallbladder cystic duct junction, and then a partial transection of the cystic duct was made. Intraoperative cholangiogram demonstrated a normal biliary anatomy except for dilation of the entire hepatic and common bile duct and the contrast did drain into the duodenum. There is no signs of filling defects. The cholangiocatheter was then removed from the patient. Two additional clips were then placed on the proximal cystic duct and then the duct was then transected. The cystic artery was similarly clipped and divided. Electrocautery was then used to detach the gallbladder from the gallbladder fossa. The specimen was then placed into the EndoCatch bag and removed from the patient. The entire right upper quadrant was irrigated and suctioned. Hemostasis was verified using electrocautery. Next, we turned our attention to the subxiphoid port. The fascial defect there was then reapproximated using 0 Vicryl suture using the Endo Close device. Next, CO2 was allowed to escape and all the trocars were then removed from the patient. Skin edges were then all reapproximated using absorbable sutures. Steri-Strips and sterile dressing were then placed over each wound. By the end of procedure, needle counts and sponge counts were correct. The patient was then extubated and taken to the recovery room in stable satisfactory condition. The assistance from a surgical PA was instrumental in completion of the case.
--- NOTE | 2016-06-03 08:21 | PCM.PNSURG ---
Subjective Visit Information: Reason for Visit Right Upper Quadrant Abdominal Pain Surgery/Surgery Date Post-Op Day # Date of Admission: Jun 01, 2016 at 23:17 Hospital Day # Subjective: no emesis overnight, some nausea. Had EGD yesterday --> normal. Objective Objective Awake in bed abd: dressings intact, soft. Vital Sign- Last 8 Hours Date Time Temp Pulse Resp B/P Pulse Ox O2 Delivery O2 Flow Rate FiO2 06/03/16 07:11 36.0 88 20 109/79 97 Room Air 06/03/16 05:32 71 16 98 Room Air Intake and Output- Last 8 Hour 06/03/16 Cumulative From/Thru 07:00 06/01/16 20:56 - 06/02/16 18:03 Intake Total 600 ml Output Total 800 ml Balance -200 ml Intake Oral 600 ml IV Total 0 ml Output Urine Total 800 ml # Voids 2 # Bowel Movements 0 Result Diagram: 06/03/16 0547 06/03/16 0547 Assessment & Plan Impression POD #1 s/p EGD and lap amalia Problems: Plan Possible discharge after noon today Pt is not planning on having colonoscopy tomorrow Rx: norco (#25) F/U with Surgery PA in 2-3 weeks VTE Prophylaxis: Sub-Q Heparin (Unfractionated) Resuscitation Status: CPR: Attempt Resuscitation Saul Long MD Jun 03, 2016 08:20
[2016-06-03] MEDS: Fluticasone 100 mCg Inhaler INHALATION SCH (08:30)
--- NOTE | 2016-06-03 09:05 | PCM.PNMED ---
Subjective Date of Service Jun 03, 2016 Subjective Patient's pain nausea vomiting if she had prior to surgery is gone. She has soreness in the abdomen however since the surgery. Exam Vital Signs Vital Sign - Last Date Time Temp Pulse Resp B/P Pulse Ox O2 Delivery O2 Flow Rate FiO2 06/03/16 07:35 36.4 91 17 104/68 98 Room Air 06/02/16 10:40 2 Intake and Output 06/02/16 06/02/16 06/03/16 Cumulative From/Thru 15:00 23:00 07:00 06/01/16 20:56 - 06/02/16 18:03 Intake Total 200 ml 400 ml 600 ml Output Total 400 ml 400 ml 800 ml Balance -200 ml 0 ml -200 ml Intake Oral 200 ml 400 ml 600 ml IV Total 0 ml 0 ml Output Urine Total 400 ml 400 ml 800 ml # Voids 2 2 # Bowel Movements 0 0 Exam Patient is alert mild distress due to abdominal soreness Lungs clear Cardia vascular regular rate and rhythm, normal S1-S2 Abdomen soft and the upper quadrants and when I examined the lower abdomen, she has tenderness in the upper quadrants. Nondistended and decreased bowel sounds Lab and Diagnostics Result Diagram: 06/03/16 0547 06/03/16 0547 Additional Diagnostics US Gallbladder (06/01/16) in the ED: IMPRESSION: Cholelithiasis with mild biliary ductal dilatation. Night read: Danilo Burt MD 06/02/2016 12:40 NM HIDA SCAN WITH CCK (05/14/16) IMPRESSION: Abnormal gallbladder ejection fraction this can be associated with chronic cholecystitis or sphincter of Oddi dysfunction. Dictated by: Liv Gregg MD, PhD on 05/14/2016 at 16:35 Approved by: Liv Gregg MD, PhD on 05/14/2016 at 16:36 US ABDOMEN (04/03/2016) IMPRESSION: 1. Increased hepatic echogenicity noted likely related to fatty infiltration of the liver but other sources of hepatocellular disease cannot be excluded. Recommend clinical correlation. 2. Cholelithiasis. Dictated by: Abhishek Troy RRA Interpreted: Nancy Abarca MD on 04/03/2016 at 11: 24 Transcribed by: LUI on 04/03/2016 at 11:29 Approved by: Nancy Abarca M.D. on 04/03/2016 at 15:18 Assessment & Plan 31 y/o F with a hx of cholelithiasis with biliary colic and outpatient evaluation by Dr. Ramon with laparoscopic cholecystectomy scheduled for 06/07/16 who presented to the ED complaining of severe RUQ abdominal pain, nausea and vomiting. Admitted for further evaluation and management of chronic cholecystitis. She just had her gallbladder removed. She had an upper endoscopy which was unremarkable. Recommendation Continue Protonix. Colonoscopy. This is for her strong family history. Due to the recent surgery , she agreed to contact me in the near future for the colonoscopy. I recommend that we should do this within the next 6-8 weeks at the latest. VTE Prophylaxis: Sub-Q Heparin (Unfractionated) VTE Mechanical Devices: Intermittant Pneumatic CD Resuscitation Status: CPR: Attempt Resuscitation Wade Gordon MD Jun 03, 2016 09:05
--- NOTE | 2016-06-03 11:27 | PCM.DIMED ---
Discharge Instructions Date of Service Jun 03, 2016 Dates of Hospitalization Jun 01, 2016 at 23:17 Discharge Diagnosis Discharge Diagnosis 1. Chronic Cholecystitis . 2. GERD. 3. H/o Asthma Activity No restrictions Call your provider Fever or Chills, Vomitting, Other Patient Instructions Colonoscopy as outpatient with GI within 4-6 week Follow up with surgery and primary care doctor within one week Follow-up with PCP in: 1 week (Primary care docotr and surgery ) Jace Dave MD Jun 03, 2016 11:27
[2016-06-03] MEDS ORDERED: HYDR-4003 PO (11:28)
--- NOTE | 2016-06-03 15:00 | PCM.PNMED ---
Subjective Date of Service Jun 02, 2016 Subjective follow up for cholelythiasis Patient seen and examined at bedside . She is somewhat better but complaint on nausea, Abdominal pain improved Exam Vital Signs Vital Sign - Last Date Time Temp Pulse Resp B/P Pulse Ox O2 Delivery O2 Flow Rate FiO2 06/03/16 07:35 36.4 91 17 104/68 98 Room Air 06/02/16 10:40 2 Intake and Output 06/02/16 06/02/16 06/03/16 Cumulative From/Thru 15:00 23:00 07:00 06/01/16 20:56 - 06/02/16 18:03 Intake Total 200 ml 400 ml 600 ml Output Total 400 ml 400 ml 800 ml Balance -200 ml 0 ml -200 ml Intake Oral 200 ml 400 ml 600 ml IV Total 0 ml 0 ml Output Urine Total 400 ml 400 ml 800 ml # Voids 2 2 # Bowel Movements 0 0 Exam General: No acute distress. In bed comfortably HEENT: PERRL . Sclerae is anicteric Mouth : Moist oropharyngeal mucosa. Neck: supple, trachea is midline Chest:clear to auscultation and percussion. There are no rales, rhonchi, wheezes or rubs. Heart: S1, S2 regular Rate, rhythm is regular. There is no murmur, rub or gallop. Abdomen: Tender on deep palpation. No guarding . Normal bowel sounds on quadrant Extremities: No edema, no cyanosis Neurologic: Grossly non focal. Confused IVs and Medications Medications Reviewed: Medications were reviewed in detail Lab and Diagnostics Result Diagram: 06/03/16 0547 06/03/16 0547 X-Rays, CTs and MRIs Abdominal US reviewed : 1. Cholelithiasis. No findings to suggest choledocholithiasis. 2. The common bile duct is the upper limits of normal for size. Additional Diagnostics US Gallbladder (06/01/16) in the ED: IMPRESSION: Cholelithiasis with mild biliary ductal dilatation. Night read: Danilo Burt MD 06/02/2016 12:40 NM HIDA SCAN WITH CCK (05/14/16) IMPRESSION: Abnormal gallbladder ejection fraction this can be associated with chronic cholecystitis or sphincter of Oddi dysfunction. Dictated by: Liv Gregg MD, PhD on 05/14/2016 at 16:35 Approved by: Liv Gregg MD, PhD on 05/14/2016 at 16:36 US ABDOMEN (04/03/2016) IMPRESSION: 1. Increased hepatic echogenicity noted likely related to fatty infiltration of the liver but other sources of hepatocellular disease cannot be excluded. Recommend clinical correlation. 2. Cholelithiasis. Dictated by: Abhishek Troy RRA Interpreted: Nancy Abarca MD on 04/03/2016 at 11: 24 Transcribed by: LUI on 04/03/2016 at 11:29 Approved by: Nancy Abarca M.D. on 04/03/2016 at 15:18 Assessment & Plan 1. Chronic cholelythiasis : NPO. IV hydration with NS @ 100 ml/hr Patent is scheduled for laparoscopic choilecystectomy and EGD today . No saskia for IV antibiotic . No clinical evidence of cholecystitis 2. GERD : On PPI ' 3. H/o Asthma : Quiescent VTE Prophylaxis: Sub-Q Heparin (Unfractionated) VTE Mechanical Devices: Intermittant Pneumatic CD Resuscitation Status: CPR: Attempt Resuscitation Time spent 25 minutes Jace Dave MD Jun 03, 2016 15:00
--- NOTE | 2016-06-03 15:07 | PCM.DC.MED ---
Discharge Summary Date of Service Jun 03, 2016 Dates of Hospitalization Date of Hospital Admission Jun 01, 2016 at 23:17 Date of Discharge: Jun 03, 2016 Providers: Admitting Physician: Jeremiah Garcia MD Primary Care Physician: Hermelindo Troy MD Attending Physician: Jeremiah Garcia MD Diagnosis at Time of Discharge Diagnosis at Time of Discharge 1. Chronic Cholecystitis . 2. GERD. 3. H/o Asthma Consultations Surgery, Gastroenterology Procedures XRay, CTs & MRIs Abdominal US reviewed : 1. Cholelithiasis. No findings to suggest choledocholithiasis. 2. The common bile duct is the upper limits of normal for size. Other Diagnostics US Gallbladder (06/01/16) in the ED: IMPRESSION: Cholelithiasis with mild biliary ductal dilatation. Night read: Danilo Burt MD 06/02/2016 12:40 NM HIDA SCAN WITH CCK (05/14/16) IMPRESSION: Abnormal gallbladder ejection fraction this can be associated with chronic cholecystitis or sphincter of Oddi dysfunction. Dictated by: Liv Gregg MD, PhD on 05/14/2016 at 16:35 Approved by: Liv Gregg MD, PhD on 05/14/2016 at 16:36 US ABDOMEN (04/03/2016) IMPRESSION: 1. Increased hepatic echogenicity noted likely related to fatty infiltration of the liver but other sources of hepatocellular disease cannot be excluded. Recommend clinical correlation. 2. Cholelithiasis. Dictated by: Abhishek Troy RRA Interpreted: Nancy Abarca MD on 04/03/2016 at 11: 24 Transcribed by: LUI on 04/03/2016 at 11:29 Approved by: Nancy Abarca M.D. on 04/03/2016 at 15:18 Brief History 31 y/o female with a history of cholelithiasis, reflux and asthma who presented to the ED complaining of worsening abdominal pain for the past month. She states that her pain has increased in severity in the last day or so and localizes to the RUQ with radiation to her back. Associated symptoms include nausea, vomiting, diarrhea, fever and decreased appetite. She describes the pain as severe and states that every time she tried to eat anything today the pain got worse and nothing seemed to make it go away. She states that she met with Dr. Ramon recently and was planning to have her gallbladder removed later this month. Per chart review, due to the patient's extensive family history of peptic ulcer disease and failure to improve on PPI therapy endoscopy was also planned for early next week. She states that her symptoms just kept getting worse so she decided to come in. She denies hematochezia or black, tarry stools , hematemesis, or urinary symptoms. She had an abdominal ultrasound in March that demonstrated cholelithiasis and a HIDA scan just a few weeks ago with findings suggestive for cholecystitis. In the ED, vitals 37.6, BP 137/95, pulse 118, RR 18, SpO2 99% on room air; Labs : lipase wnl, total bili 0.9, AST 17, ALT 8, alk phos 80, wbc 9.5, H/H 15.6/46.5 , plts 288, sodium 134, potassium 4.0, chloride 97, bicarb 21, BUN 9, creatinine 0.62, glucose 104. Urine test negative. Urinalysis with trace leukocyte esterase, negative nitrite, 6-10 wbc,and trace occult blood. Gastroenterology and General Surgery were consulted from the ED and both plan to see the patient in the morning. Hospital Course 1. Chronic cholelythiasis : NPO. IV hydration with NS @ 100 ml/hr Patent underwent laparoscopic choilecystectomy . EGD done the same day and is negative Colonoscopy as outpatient . Patient has family history of colon cancer . Patient able to tolerate PO intake and was cleared by surgery for discharge 2. GERD : On PPI ' 3. H/o Asthma : Quiescent Exam Vital Signs (Last) Date Time Temp Pulse Resp B/P Pulse Ox O2 Delivery O2 Flow Rate FiO2 06/03/16 07:35 36.4 91 17 104/68 98 Room Air 06/02/16 10:40 2 Exam General: No acute distress, well-developed, well-nourished, appropriately interactive HEENT: no scleral icterus, oral mucosa moist . Neck: Supple with full range of motion. No lymphadenopathy or thyromegaly. Cardiovascular: S1S2, Regular rate and rhythm with no murmurs, rubs, or gallops appreciated Lungs : Clear to auscultation bilaterally with no crackles, wheezes Abdomen: Bowel tones present. Soft, non distended, mildly tender, no guarding Extremities: No clubbing, cyanosis, e Neurological: grossly intact Test 06/01/16 21:21 06/01/16 21:36 06/03/16 05:47 Hold Purple Top Tube Received (Received) Hold Blue Top Tube Received (Received) Magnesium Level 1.6mg/dL (1.6-2.6) Lipase 19U/L (13-60) Hold Red Top Tube Received (Received) Hold [place] Top Tube Received (Received) Hold Lopez Top Tube Received (Received) Urine Color Yellow (YELLOW) Urine Appearance Clear (CLEAR,HAZY) Urine pH 6.0 (5.0-8.0) Urine Specific [place] 1.005 (1.003-1.035) Urine Protein Negativemg/dL (NEG,TRACE) Urine Glucose (UA) Negativemg/dL (NEGATIVE) Urine Ketones Negativemg/dL (NEGATIVE) Urine Occult Blood Trace (NEGATIVE) Urine Nitrite Negative (NEGATIVE) Urine Bilirubin Negative (NEGATIVE) Urine Urobilinogen Normalmg/dL (NORMAL) Urine Leukocyte Esterase Trace (NEGATIVE) Urine RBC 0-2/hpf (0-2) Urine WBC 6-10/hpf (0-5) Urine Epithelial Cells Few/hpf (NONE-MOD) Urine Crystals None seen (NONE SEEN) Urine Bacteria None/hpf (NONE-FEW) Urine Hyaline Casts None/lpf (NONE) Urine Granular Casts None seen (NONE SEEN) Urine Waxy Casts None seen (NONE SEEN) Urine Red Blood Cell Casts None seen (NONE SEEN) Urine White Blood Cell Casts None seen (NONE SEEN) Urine Mucus None seen (None Seen) Urine Trichomonas None seen (NONE SEEN) Urine Yeast None (NONE SEEN) Urine Culture Reflexed Indicated White Blood Count 8.5th/mm3 (3.8-10.1) Red Blood Count 4.42mil/mm3 (3.90-5.20) Hemoglobin 12.5g/dL (12.0-15.6) Hematocrit 37.7% (35.0-46.0) Mean Corpuscular Volume 85.3fL (81-100) Mean Corpuscular Hemoglobin 28.3pg (27.0-35.0) Mean Corpuscular Hemoglobin Concent 33.2% (32.0-37.0) Red Cell Distribution Width 13.0% (12.3-15.4) Platelet Count 247bil/L (150-400) Neutrophils (%) (Auto) 48.7% (40-74) Lymphocytes (%) (Auto) 39.9% (14-46) Monocytes (%) (Auto) 10.2% (4-12) Eosinophils (%) (Auto) 0.9% (0-5) Basophils (%) (Auto) 0.1% (0-3) Sodium Level 138mEq/L (134-144) Potassium Level 3.7mEq/L (3.5-5.2) Chloride Level 103mEq/L (97-108) Carbon Dioxide Level 21mmol/L (18-29) Blood Urea Nitrogen 3mg/dL (6-20) Creatinine 0.62mg/dL (0.57-1.00) Estimat Glomerular Filtration Rate 162mL/min (>59) Glucose Level 109mg/dL (60-99) Calcium Level 8.3mg/dL (8.5-10.1) Total Bilirubin 0.2mg/dL (0.0-1.2) Aspartate Amino Transf (AST/SGOT) 40U/L (0-50) Alanine Aminotransferase (ALT/SGPT) 23U/L (0-32) Alkaline Phosphatase 58U/L (25-150) Total Protein 5.7g/dL (6.4-8.4) Albumin 3.5g/dL (3.4-5.0) Discharge Medications Discharge Medications Beclomethasone Dipropionate (Qvar) 8.7 Gm Aer.w.adap 1 PUFF INHALATION BID ( Reported) 40 MEQ Omeprazole (Omeprazole) 20 Mg Capsule.dr 20 MG PO ACHS (Reported) Sucralfate Susp (Carafate Susp) 1 Gm/10 Ml Oral.susp 1 GM PO TID (Reported) As needed Acetaminophen (Acetaminophen) 325 Mg Tablet 500 MG PO Q4H PRN PRN For Pain ( Reported) Albuterol HFA (Proair HFA) 8.5 Gm Hfa.aer.ad 2 PUFFS INHALATION Q4H PRN PRN For Shortness of Breath (Reported) Hydrocodone-Acetaminophen 5-325 mg (Hydrocodone-Acetaminophen 5-325 mg) 1 Each Tablet 1-2 TABLET PO Q6H PRN PRN For Pain Prescribed by: REMIGIO DAVE MD Followup Plan Disposition: Home Follow-up plan Colonoscopy as outpatient within 4-6 weeks Follow up with PCP and surgery within one week Discharge Activity: No restrictions Patient Instructions Colonoscopy as outpatient with GI within 4-6 week Follow up with surgery and primary care doctor within one week Follow-up with PCP in: 1 week (Primary care docotr and surgery ) Follow-up in: 1 week (PCP and surgery ) Time spent 25 minutes Remigio Daev MD Jun 03, 2016 15:07
--- NOTE | 2016-06-03 15:42 | NUR ---
Discharge Pt left with family in stable condition with all belongings at 1415, IV d/c'd, prescriptions already filled by mom. instructions for scheduling follow up appointments on Saturday given. Pt started dry heaving prior to discharge receive a prescription for pt for Zofran. pt stated she burped and stated the nausea was a lot better.
--- NOTE | 2016-06-06 19:06 | PATH ---
SURGICAL PATHOLOGY Attending Physician:Wade Gordon M.D. CASE STATUS: Signed Out PATIENT NAME: DOUGIE CORREA PID: [id number] : 1985 DATE COLLECTED:06/02/2016 00:00 SPECIMEN: Duodenum, Biopsy CLINICAL HISTORY: TO R/O CELIAC DISEASE 1). RANDOM BX FINAL DIAGNOSIS: Duodenum, Biopsy: Small bowel mucosa with patchy mucosal erosion and otherwise no diagnostic abnormality. Negative for active inflammation, features of sprue, dysplasia or malignancy. ICD10: K52.9 GROSS DESCRIPTION: The specimen is received in one formalin filled container labeled with the patient's name, labeled "random duod" and consists of 2 portions of tissue which aggregate to 0.3 x 0.2 x 0.2 CM. The specimen is entirely submitted in one cassette. 06/04/2016 [facility] ICD-9 CODES: CPT CODES: 1: 84062 Electronically Signed Out Mahogany Adkins MD [facility] [address], [place] [address] Technical component performed at [facility], [address] [place] [address] Ave[address], [place], [address]
--- NOTE | 2016-06-06 19:07 | PATH ---
SURGICAL PATHOLOGY Attending Physician:Saul Long M.D. CASE STATUS: Signed Out PATIENT NAME: DOUGIE CORREA PID: [id number] : 1985 DATE COLLECTED:06/02/2016 00:00 SPECIMEN: Gallbladder CLINICAL HISTORY: Cholelithiasis 1). GALLBLADDER FINAL DIAGNOSIS: Gallbladder, Laparoscopic Cholecystectomy: Chronic cholecystitis, cholesterolosis, and cholelithiasis. ICD10: K80.6 GROSS DESCRIPTION: The specimen is received in one formalin filled container labeled with the patient's name, sublabeled "gallbladder" and consists of a slightly opened 7.0 x 3.0 x 3.0 CM gallbladder. The serosa is smooth. The wall is 0.2-0.3 CM in thickness. The mucosa is a dark green in color. The lumen contains a light green mucoid material and approximately 15-20 yellow goddard cobblestone calculi which range in size from 0.3-0.5 CM in greatest dimension. 5 manufacturers representative sections are submitted in one cassette. 06/04/2016 [facility] ICD-9 CODES: CPT CODES: 1: 12795 Electronically Signed Out Mahogany Adkins MD [facility] [address], [place] [address] Technical component performed at [facility], [facility] [address], [place], [address]
[2016-07-13] MEDS ORDERED: BECL8.7A5 INHALATION (10:37)
[2016-07-13] MEDS ORDERED: ALBU90AE IH (10:37)
== END 2016-06-03 14:00 | disposition home or self-care (01) ==
LOC: SED 20:52 → OSC 23:17
PROVIDERS: ADMIT Hospitalist; ATTEND Hospitalist
DX: K80.10 Calculus of gallbladder with chronic cholecystitis without obstruction (principal); K52.9 Noninfective gastroenteritis and colitis, unspecified; K21.9 Gastro-esophageal reflux disease without esophagitis; J45.909 Unspecified asthma, uncomplicated; Z79.899 Other long term (current) drug therapy
CPT/HCPCS: 43239; 47563; 74300; 76705; 80053; 81000; 81025; 83690; 83735; 85025; 87086; 87088; 94640; 94664; 94799; 96374; 96375; 99285; J0690; J1100; J2175; J2250; J2405; J2710; J3010; J7030; J7120; J7620; Q9967

== ENCOUNTER 2016-07-17 11:15 | Day surgery (SDC) | payer OTHER ==
[~2016-07-17] VITALS: Ht 165.1 cm; Wt 74.0 kg
[~2016-07-17 11:15] MED LIST changes: +ALBU90AE IH; +BECL8.7A5 INHALATION; -Dexamethasone 4 mg/mL Inj ONE; -Glycopyrrolate 0.2 MG/ML 1mL Inj ONE; -Ketamine 10 mg/mL 20 mL Inj ONE; -Neostigmine 1 mg/mL 10 mL Inj ONE; -Ondansetron 2 mg/mL 2 mL Inj ONE; -Propofol 10,000 mCg/mL 20 mL Inj ONE; -Rocuronium 10 mg/mL 5 mL Inj ONE; +Sodium Chloride LOK Flush 10 mL Syringe IV PRN; +fentaNYL-PF 50 mCg/mL 2 mL Inj IVPUSH PRN
[2016-07-17 11:36] VITALS: BP 124/88; PULSE 82; RESP 16; O2SAT 98
[2016-07-17] MEDS: 0.9% Sodium Chloride 1,000 ML IV SCH ×2 (12:34→12:36)
--- NOTE | 2016-07-17 12:43 | PCM.ENDCOL ---
Colonoscopy Date of Service: July 17, 2016 Physician Wade Gordon MD Pre Procedure Diagnosis: Screening family history of colon cancer Post Procedure Dx & Findings: Polyp hemorrhoids diverticuli Procedure Colonoscopy PROCEDURE IN DETAIL: Prep adequate Withdrawal time 10 minutes After unremarkable rectal examination the Olympus video colonoscope was inserted patient's anal canal and was advanced to cecum. Landmarks were identified including the ileocecal valve and appendiceal orifice. Scope was withdrawn systematically. Visualized colonic mucosa showed healthy shiny mucosa with normal healthy-appearing vasculature. 1 mm polyp in the rectum which was removed completely using cold forceps. Narrow banding used and was not able to tell whether this is hyperplastic. In the right colon, there were a few isolated small diverticula. In the rectum retroflexion was done which showed hemorrhoids. Anal canal was inspected carefully on the way out and hemorrhoids noted. Impression Family history of colon cancer Polyp 1 status post complete removal Diverticula Hemorrhoids Recommendation Repeat colonoscopy in 5 years Diverticular diet Presedation Assessment Risks and Benefits Informed consent was obtained from the patient after all risks and benefits including but not limited to drug reaction, infection, pain, bleeding, perforation, as well as alternatives were discussed. Patient monitoring Continuous pulse oximetry, cardiac monitoring, blood pressure monitoring, IV access, and oxygen at 2L per nasal cannula. Periprocedural Fentanyl: Fentanyl 125mcg Incrementally Midazolam: Midazolam 7mg Incrementally Complications There were no periprocedural complications identified. Post Procedure Plan Post Procedure Recommendations 1. Restrict activities today. 2. Resume normal activities in the morning. 3. Resume medications. 4. Patient informed of normal post procedure side effects as bloating, drowsiness, blood streaking in the stool. 5. average risk CRCS. If colon polyps come back as: -Hyperplastic- can repeat colonoscopy in 10 years -Tubular adenoma- repeat colonoscopy in 5 years -Tubulovillous/villous adenoma- repeat colonoscopy in 3 years -If any dysplasia- return to clinic as soon as possible 6. Please don't hesitate to call me with any questions. Wade Gordon MD July 17, 2016 12:43
[2016-07-17 12:46] VITALS: BP 108/69; PULSE 69; RESP 16; O2SAT 97
[2016-07-17 12:57] VITALS: BP 106/63; PULSE 65; RESP 16; O2SAT 98
[2016-07-17 13:07] VITALS: BP 106/72; PULSE 80; RESP 16; O2SAT 100
--- NOTE | 2016-07-20 12:17 | PATH ---
SURGICAL PATHOLOGY Attending Physician:Wade Gordon M.D. CASE STATUS: Signed Out PATIENT NAME: DOUGIE CORREA PID: [id number] : 1985 DATE COLLECTED:07/17/2016 22:42 SPECIMEN: Rectum, Biopsy CLINICAL HISTORY: 1). RECTAL POLYP FINAL DIAGNOSIS: 1.RECTAL POLYP: HYPERPLASTIC POLYP. ICD10 K62.1 GROSS DESCRIPTION: The specimen is received in one formalin filled container labeled with the patient's name, sublabeled "rectal polyp" and consists of a 0.3 x 0.2 x 0.2 CM portion of tissue which is entirely submitted in one cassette. 07/17/2016 [facility] DESCRIPTION: See diagnosis. ICD-9 CODES: CPT CODES: 1: 18627 Electronically Signed Out Ekaterina Hurst MD [facility] [address], [place] [address] Technical component performed at [facility], [address] [place] [address] Ave[address], [place], [address]
== END 2016-07-17 23:59 | disposition home or self-care (01) ==
LOC: END 11:15
PROVIDERS: ATTEND Internal Medicine
DX: Z12.11 Encounter for screening for malignant neoplasm of colon (principal); Z80.0 Family history of malignant neoplasm of digestive organs; K62.1 Rectal polyp; K57.30 Diverticulosis of large intestine without perforation or abscess without bleeding; K64.9 Unspecified hemorrhoids; R10.13 Epigastric pain
CPT/HCPCS: 45380; 99152; J2250; J3010; J7030